=== PATIENT | female | born 1990 | race Caucasian/White ===

== ENCOUNTER 2017-04-17 02:51 | Emergency (ER) | payer OTHER ==
[~2017-04-17] VITALS: Ht 170.2 cm; Wt 88.0 kg
[~2017-04-17 02:51] MED LIST: CEFP250T PO
[2017-04-17 02:52] VITALS: BP 176/109; PULSE 107; RESP 18; TEMP 97.7; O2SAT 98
[2017-04-17] MEDS ORDERED: LEVO125T4 PO (03:24)
[2017-04-17] MEDS ORDERED: SODIUM CHLOR 0.9% 1000 ML INJ 1,000 ML IV SCH (03:24)
[2017-04-17] MEDS ORDERED: birth control (03:24)
[2017-04-17] MEDS ORDERED: ONDANSETRON HCL 4 MG/2 ML VIAL IVP ONE (03:30)
[2017-04-17] MEDS ORDERED: KETOROLAC TROMETHAMINE 30 MG/ML (IVP) VIAL IVP ONE (03:30)
[2017-04-17] MEDS ORDERED: MORPHINE SULFATE 4 MG/ML INJ IV PUSH ONE (03:30)
[2017-04-17] MEDS ORDERED: SODIUM CHLORIDE 0.9% FLUSH 10 ML FLUSH IV FLUSH PRN (03:30)
--- NOTE | 2017-04-17 03:33 | PD ---
HPI Chief Complaint: Abdominal Pain Time Seen by Provider: 03:13 Travel History International Travel<30 days: No Contact w/Intl Traveler<30days: No Traveled to known affect area: No History of Present Illness HPI The patient is a 26-year-old female who presents to the emergency department for right flank pain. The patient was driving home from work earlier today at approximately 6 PM when she developed right flank pain. The pain is located in the right lower aspect of her back and radiates to the anterior right abdomen. She does complain of mild dysuria, but denies any frequency, urgency, or hematuria. She does complain of mild nausea without any vomiting. The patient is currently on control denies any known history of ovarian cyst. She denies any vaginal bleeding or vaginal discharge. She denies any history of appendicitis, biliary colic, cholelithiasis, or pancreatitis. She denies any previous history of kidney stones, however, does have a familial history of kidney stones. Symptoms are moderate, there are no alleviating or exacerbating factors. The patient's last meal was lunch at 12: 30 PM. PFSH Past Medical History Cancer: No Diabetes: No Glaucoma: No Hepatitis: No Hiatal Hernia: No Hypertension: No Thyroid Disease: Yes (ZENOBIA) Tetanus Vaccination: Unknown Influenza Vaccination: Yes ?: Not LMP: IRREG Past Surgical History Pacemaker: No Tonsillectomy: Yes Other Surgery: No Social History Alcohol Use: No Tobacco Use: No Allergies-Medications (Allergen,Severity, Reaction): Coded Allergies: Augmentin (Unverified Allergy, Severe, Hives, 04/17/17) Sulfa (Unverified Allergy, Severe, Nausea/Vomiting, 04/17/17) Penicillin (Verified Allergy, Unknown, 04/17/17) Septra (Verified Allergy, Unknown, 04/17/17) Reported Meds & Prescriptions Reported Meds & Active Scripts Active Reported Levothyroxine (Levothyroxine Sodium) 125 Mcg Tab 125 Mcg PO DAILY [ control] Review of Systems Except as stated in HPI: all other systems reviewed are Neg General / Constitutional: No: Fever Cardiovascular: No: Chest Pain or Discomfort Respiratory: No: Shortness of Breath Gastrointestinal: Positive: Nausea, Abdominal Pain, Constipation (no bowel movement in 2 days), No: Vomiting, Diarrhea Genitourinary: Positive: Dysuria, No: Urgency, Frequency, Hematuria Musculoskeletal: No: Myalgias, Arthralgias Skin: No Rash Physical Exam Narrative GENERAL: Awake, alert, very pleasant 26-year-old female who appears her stated age and is in no acute respiratory distress. She does appear moderate discomfort. SKIN: Focused skin assessment warm/dry. HEAD: Atraumatic. Normocephalic. EYES: Pupils equal and round. No scleral icterus. No injection or drainage. ENT: No nasal bleeding or discharge. Mucous membranes pink and moist. NECK: Trachea midline. No JVD. CARDIOVASCULAR: Regular rate and rhythm. No murmur appreciated. RESPIRATORY: No accessory muscle use. Clear to auscultation. Breath sounds equal bilaterally. GASTROINTESTINAL: Abdomen soft, mild tenderness of the right lower quadrant and right flank. Back: No CVA tenderness. MUSCULOSKELETAL: No obvious deformities. No clubbing. No cyanosis. No edema. NEUROLOGICAL: Awake and alert. No obvious cranial nerve deficits. Motor grossly within normal limits. Normal speech. PSYCHIATRIC: Appropriate mood and affect; insight and judgment normal. Data Data Last Documented VS Vital Signs Date Time Temp Pulse Resp B/P Pulse Ox O2 Delivery O2 Flow Rate FiO2 04/17/17 02:52 97.7 107 18 176/109 98 Room Air Orders Complete Blood Count With Diff (04/17/17 03:24) Comprehensive Metabolic Panel (04/17/17 03:24) Lipase (04/17/17 03:24) Urinalysis - C+S If Indicated (04/17/17 03:24) Ct Abd/Pel W/O Iv Contrast (04/17/17 03:24) Iv Access Insert/Monitor (04/17/17 03:24) Ecg Monitoring (04/17/17 03:24) Oximetry (04/17/17 03:24) Morphine Inj (Morphine Inj) (04/17/17 03:30) Ondansetron Inj (Zofran Inj) (04/17/17 03:30) Sodium Chlor 0.9% 1000 Ml Inj (Ns 1000 M (04/17/17 03:24) Sodium Chloride 0.9% Flush (Ns Flush) (04/17/17 03:30) Ketorolac Inj (Toradol Inj) (04/17/17 03:30) Ed Urine Pregnancytest Poc (04/17/17 03:24) Us Pelvis Comp W Doppler (04/17/17 ) Labs Laboratory Tests Test 04/17/17 04/17/17 03:25 03:35 Urine Color LIGHT-YELLOW Urine Turbidity CLEAR Urine pH 7.0 Urine Specific [place] 1.005 Urine Protein NEG mg/dL Urine Glucose (UA) NEG mg/dL Urine Ketones NEG mg/dL Urine Occult Blood SMALL Urine Nitrite NEG Urine Bilirubin NEG Urine Urobilinogen LESS THAN 2.0 MG/DL Urine Leukocyte Esterase MOD Urine RBC 1 /hpf Urine WBC 8 /hpf Microscopic Urinalysis Comment CULT NOT INDICATED White Blood Count 12.6 TH/MM3 Red Blood Count 4.34 MIL/MM3 Hemoglobin 13.0 GM/DL Hematocrit 38.3 % Mean Corpuscular Volume 88.4 FL Mean Corpuscular Hemoglobin 30.0 PG Mean Corpuscular Hemoglobin 33.9 % Concent Red Cell Distribution Width 13.3 % Platelet Count 201 TH/MM3 Mean Platelet Volume 11.1 FL Neutrophils (%) (Auto) 62.3 % Lymphocytes (%) (Auto) 29.0 % Monocytes (%) (Auto) 6.3 % Eosinophils (%) (Auto) 1.5 % Basophils (%) (Auto) 0.9 % Neutrophils # (Auto) 7.8 TH/MM3 Lymphocytes # (Auto) 3.6 TH/MM3 Monocytes # (Auto) 0.8 TH/MM3 Eosinophils # (Auto) 0.2 TH/MM3 Basophils # (Auto) 0.1 TH/MM3 CBC Comment DIFF FINAL Differential Comment Sodium Level 140 MEQ/L Potassium Level 3.2 MEQ/L Chloride Level 106 MEQ/L Carbon Dioxide Level 23.9 MEQ/L Anion Gap 10 MEQ/L Blood Urea Nitrogen 13 MG/DL Creatinine 0.91 MG/DL Estimat Glomerular Filtration 75 ML/MIN Rate Random Glucose 93 MG/DL Calcium Level 9.1 MG/DL Total Bilirubin 0.4 MG/DL Aspartate Amino Transf 53 U/L (AST/SGOT) Alanine Aminotransferase 59 U/L (ALT/SGPT) Alkaline Phosphatase 79 U/L Total Protein 8.0 GM/DL Albumin 3.7 GM/DL Lipase 162 U/L MDM Medical Decision Making Medical Screen Exam Complete: Yes Emergency Medical Condition: Yes Interpretation(s) Laboratory Tests Test 04/17/17 04/17/17 03:25 03:35 Urine Color LIGHT-YELLOW Urine Turbidity CLEAR Urine pH 7.0 Urine Specific [place] 1.005 Urine Protein NEG mg/dL Urine Glucose (UA) NEG mg/dL Urine Ketones NEG mg/dL Urine Occult Blood SMALL Urine Nitrite NEG Urine Bilirubin NEG Urine Urobilinogen LESS THAN 2.0 MG/DL Urine Leukocyte Esterase MOD Urine RBC 1 /hpf Urine WBC 8 /hpf Microscopic Urinalysis Comment CULT NOT INDICATED White Blood Count 12.6 TH/MM3 Red Blood Count 4.34 MIL/MM3 Hemoglobin 13.0 GM/DL Hematocrit 38.3 % Mean Corpuscular Volume 88.4 FL Mean Corpuscular Hemoglobin 30.0 PG Mean Corpuscular Hemoglobin 33.9 % Concent Red Cell Distribution Width 13.3 % Platelet Count 201 TH/MM3 Mean Platelet Volume 11.1 FL Neutrophils (%) (Auto) 62.3 % Lymphocytes (%) (Auto) 29.0 % Monocytes (%) (Auto) 6.3 % Eosinophils (%) (Auto) 1.5 % Basophils (%) (Auto) 0.9 % Neutrophils # (Auto) 7.8 TH/MM3 Lymphocytes # (Auto) 3.6 TH/MM3 Monocytes # (Auto) 0.8 TH/MM3 Eosinophils # (Auto) 0.2 TH/MM3 Basophils # (Auto) 0.1 TH/MM3 CBC Comment DIFF FINAL Differential Comment Sodium Level 140 MEQ/L Potassium Level 3.2 MEQ/L Chloride Level 106 MEQ/L Carbon Dioxide Level 23.9 MEQ/L Anion Gap 10 MEQ/L Blood Urea Nitrogen 13 MG/DL Creatinine 0.91 MG/DL Estimat Glomerular Filtration 75 ML/MIN Rate Random Glucose 93 MG/DL Calcium Level 9.1 MG/DL Total Bilirubin 0.4 MG/DL Aspartate Amino Transf 53 U/L (AST/SGOT) Alanine Aminotransferase 59 U/L (ALT/SGPT) Alkaline Phosphatase 79 U/L Total Protein 8.0 GM/DL Albumin 3.7 GM/DL Lipase 162 U/L Last Impressions Abdomen/Pelvis CT 04/17/17 0324 Signed Impressions: Service Date/Time: Monday, April 17, 2017 03:43 - CONCLUSION: 1. No evidence for appendicitis. 2. No renal calculi or hydronephrosis. Mayank Shaw MD Ultrasound of the pelvis was normal Differential Diagnosis Differential diagnoses includes nephrolithiasis, pyelonephritis, appendicitis, ovarian cyst, ovarian torsion, constipation, atypical biliary colic, ectopic . Narrative Course IV was established, labs were drawn and sent, and the patient was placed on cardiac telemetry monitoring and continuous pulse oximetry monitoring. The patient was administered morphine, Toradol, Zofran, and IV fluids. Bedside UA test was obtained and UA was sent to lab. CT of the abdomen and pelvis without IV contrast was ordered. CT of abdomen and pelvis is unremarkable. Laboratory evaluation reveals mildly elevated LFTs, otherwise unremarkable. The patient was reassessed her pain had improved. Ultrasound was negative for torsion. The patient has a history of intermittent constipation, therefore, will be treated with GoLYTELY. Abdominal exam is benign. She is stable for outpatient follow-up. Diagnosis Primary Impression: Abdominal pain Qualified Code: R10.31 - Right lower quadrant abdominal pain Additional Impression: Constipation Qualified Code: K59.00 - Constipation, unspecified constipation type Patient Instructions: General Instructions Additional Instructions: Medications as directed. Please provide the patient a copy of her labs and CT/ ultrasound results at discharge. Follow-up with GI if symptoms persist. Med/Other Pt SpecificInfo: Prescription(s) given Scripts Peg-Electrolytes (Golytely 236 gm)4,000 Ml Soln4,000 Ml PO ONCE #1 CONTAINER Ref 0 Prov:Zach Ziegler MD 04/17/17 Disposition: DISCHARGE HOME Condition: Stable Zach Ziegler MD Apr 17, 2017 03:33
[2017-04-17 03:52] LABS: AUTOMATED NEUTROPHIL # 7.8 TH/MM3 (1.8-7.7); BASOPHIL # 0.1 TH/MM3 (0-0.2); BASOPHIL % 0.9 % (0.0-2.0); EOSINOPHIL # 0.2 TH/MM3 (0-0.4); EOSINOPHIL % 1.5 % (0.0-4.0); HEMATOCRIT 38.3 % (35.0-46.0); HEMO FLAGS DIFF FINAL; LYMPHOCYTE # 3.6 TH/MM3 (1.0-4.8); MEAN CELL VOLUME 88.4 FL (80.0-100.0); MEAN CORPUSCULAR HGB CONC 33.9 % (32.0-36.0); MONO % 6.3 % (0.0-8.0); NEUT % 62.3 % (16.0-70.0); PLATELET COUNT 201 TH/MM3 (150-450); RED BLOOD COUNT 4.34 MIL/MM3 (4.00-5.30); RED CELL DISTRIBUTION WIDTH 13.3 % (11.6-17.2); WHITE BLOOD COUNT 12.6 TH/MM3 (4.0-11.0)
[2017-04-17 03:59] LABS: BLOOD, URINE SMALL (NEG); COMMENT (UR) CULT NOT INDICATED; CULTURE IF INDICATED CULT NOT INDICATED; GLUCOSE,URINE NEG (NEG); KETONE, URINE NEG (NEG); NITRITE,URINE NEG (NEG); URINE COLOR LIGHT-YELLOW (YELLW/STRAW)
[2017-04-17 04:05] LABS: ALT (GPT) 59 U/L (10-53); ANION GAP 10 MEQ/L (5-15); AST (GOT) 53 U/L (15-37); BICARBONATE 23.9 MEQ/L (21.0-32.0); BLOOD UREA NITROGEN 13 MG/DL (7-18); CHLORIDE 106 MEQ/L (98-107); GLOMERULAR FILTRATION RATE 75 ML/MIN (>89); POTASSIUM 3.2 MEQ/L (3.5-5.1); SODIUM (NA) 140 MEQ/L (136-145)
[2017-04-17 04:07] LABS: ALKALINE PHOSPHATASE 79 U/L (45-117); TOTAL BILIRUBIN ADULT 0.4 MG/DL (0.2-1.0)
--- NOTE | 2017-04-17 04:25 | RADRPT ---
EXAM DATE/TIME: 04/17/2017 03:43 [facility] COMPARISON: No previous studies available for comparison. INDICATIONS : Right lower quadrant abdominal pain. ORAL CONTRAST: No oral contrast ingested. RADIATION DOSE: 15.14 CTDIvol (mGy) MEDICAL HISTORY : None SURGICAL HISTORY : None. ENCOUNTER: Initial ACUITY: 1 day PAIN SCALE: 9/10 LOCATION: abdomen TECHNIQUE: Volumetric scanning of the abdomen and pelvis was performed. Using automated exposure control and ad justment of the mA and/or kV according to patient size, radiation dose was kept as low as reasonably achievable to obtain optimal diagnostic quality images. DICOM format image data is available electro nically for review and comparison. FINDINGS: LOWER LUNGS: The visualized lower lungs are clear. LIVER: Homogeneous density without lesion. There is no dilation of the biliary tree. No calcified gallston es. SPLEEN: Normal size without lesion. PANCREAS: Within normal limits. KIDNEYS: Normal in size and shape. There is no mass, stone, or hydronephrosis. ADRENAL GLANDS: Within normal limits. VASCULAR: There is no aortic aneurysm. BOWEL/MESENTERY: The stomach, small bowel, and colon demonstrate no acute abnormality. There is no free intraperitone al air or fluid. ABDOMINAL WALL: Within normal limits. RETROPERITONEUM: There is no lymphadenopathy. BLADDER: No wall thickening or mass. REPRODUCTIVE: Within normal limits. INGUINAL: There is no lymphadenopathy or hernia. MUSCULOSKELETAL: Within normal limits for patient age. CONCLUSION: 1. No evidence for appendicitis. 2. No renal calculi or hydronephrosis. Mayank Shaw MD on April 17, 2017 at 4:22 Board Certified Radiologist. This report was verified electronically.
--- NOTE | 2017-04-17 06:25 | RADRPT ---
EXAM DATE/TIME: 04/17/2017 05:04 [facility] COMPARISON: No previous studies available for comparison. INDICATIONS : Pelvic pain. MEDICAL HISTORY : Dante. Pelvic pain. SURGICAL HISTORY : Tonsillectomy. ENCOUNTER: Initial ACUITY: 1 day PAIN SCORE: 7/10 LOCATION: Bilateral pelvis MEASUREMENTS: UTERUS: 7.9 x 4.8 x 2.3 cm ENDOMETRIAL STRIPE: 5 mm RIGHT OVARY: 2.8 x 1.1 x 1.3 cm LEFT OVARY: 2.8 x 1.8 x 1.6 cm FINDINGS: UTERUS: The myometrium has homogeneous echotexture without mass. RIGHT OVARY: Ovary contains no mass or significant cystic lesion. Normal flow. LEFT OVARY: Ovary contains no mass or significant cystic lesion. Normal flow. MISCELLANEOUS: No free fluid. CONCLUSION: 1. Normal pelvic sonogram. Mayank Shaw MD on April 17, 2017 at 6:22 Board Certified Radiologist. This report was verified electronically.
[2017-04-17] MEDS ORDERED: COLY4000S PO (06:31)
== END 2017-04-17 06:50 | disposition home or self-care (01) ==
LOC: NEPE 02:51
DX: R10.31 Right lower quadrant pain (principal); K59.00 Constipation, unspecified; R30.0 Dysuria; E06.3 Autoimmune thyroiditis; Z88.2 Allergy status to sulfonamides; Z88.0 Allergy status to penicillin; Z88.1 Allergy status to other antibiotic agents
CPT/HCPCS: 74176; 76856; 80053; 81001; 83690; 84703; 85025; 93975; 96374; 96375; 99285; J1885; J2270; J2405; J7030